=== PATIENT | female | born 1995 | race Caucasian/White ===

== ENCOUNTER 2021-08-02 14:27 | Emergency (ER) | payer OTHER ==
[2021-08-02 17:47] LABS: BASOPHIL 0.6 % (0-2); EOSINOPHIL 0.4 % (0-5); HCT 42.2 % (37.0-47.0); HGB 13.9 g/dl (12.5-16.0); LYMPHOCYTE 19.6 % (15-48); MCH 30.8 pg (25.0-31.0); MCHC 32.9 g/dL (32.0-36.0); MCV 93.6 fL (78.0-100.0); MPV 10.7 fL (6.0-9.5); NEUTROPHIL 73.2 % (41-80); NRBC 0; PLT 224 K/uL (150-400); RBC 4.51 M/uL (4.20-5.40); RDW 12.5 % (11.5-14.0); WBC 4.8 K/uL (4.0-10.5)
[2021-08-02 18:02] LABS: INFLUENZA A NAA NEGATIVE (NEGATIVE)
[2021-08-02 18:04] LABS: CORONAVIRUS 2019 SARS-COV-2 POSITIVE (NEGATIVE)
[2021-08-02 18:19] LABS: BUN/CREAT RATIO (CALC) 12.7 RATIO; CREATININE 0.79 mg/dL (0.51-0.95); POTASSIUM 3.6 mmol/L (3.5-5.1)
== END 2021-08-02 19:30 | disposition home or self-care (01) ==
LOC: FER 14:27
PROVIDERS: Nurse Practitioner Family
DX: U07.1 COVID-19 (principal)
CPT/HCPCS: 36415; 80048; 84439; 84443; 84481; 84484; 85025; 85379; J2930; U0002